=== PATIENT | female | born 1950 | race Two or more races ===

== ENCOUNTER 2018-04-14 10:24 | Outpatient (CLI) | payer MEDICARE, BC | END 2018-04-14 23:59 | disposition home or self-care (01) | LOC: WOU 10:24 | PROVIDERS: ATTEND Podiatrist Foot & Ankle Surgery | DX: S90.31XA Contusion of right foot, initial encounter (principal); S93.401A Sprain of unspecified ligament of right ankle, initial encounter; X50.1XXA Overexertion from prolonged static or awkward postures, initial encounter; Y93.01 Activity, walking, marching and hiking; Y92.219 Unspecified school as the place of occurrence of the external cause; Z87.891 Personal history of nicotine dependence; E07.9 Disorder of thyroid, unspecified; J45.909 Unspecified asthma, uncomplicated; C90.00 Multiple myeloma not having achieved remission; Z79.899 Other long term (current) drug therapy; M84.474K Pathological fracture, right foot, subsequent encounter for fracture with nonunion | CPT/HCPCS: 73630-TC; G0463; Z7610 ==

== ENCOUNTER 2018-05-09 11:25 | Outpatient (CLI) | payer MEDICARE, BC | END 2018-05-09 23:59 | disposition home or self-care (01) | LOC: WOU 11:25 | PROVIDERS: ATTEND Podiatrist Foot & Ankle Surgery | DX: M84.374D Stress fracture, right foot, subsequent encounter for fracture with routine healing (principal); S93.601D Unspecified sprain of right foot, subsequent encounter; S90.31XD Contusion of right foot, subsequent encounter; X58.XXXD Exposure to other specified factors, subsequent encounter; R60.0 Localized edema | CPT/HCPCS: G0463; Z7610 ==

== ENCOUNTER 2018-05-31 13:38 | Outpatient (CLI) | payer MEDICARE, BC | END 2018-05-31 23:59 | disposition home or self-care (01) | LOC: WOU 13:38 | PROVIDERS: ATTEND Podiatrist Foot & Ankle Surgery | DX: S92.351K Displaced fracture of fifth metatarsal bone, right foot, subsequent encounter for fracture with nonunion (principal); X58.XXXD Exposure to other specified factors, subsequent encounter; G57.81 Other specified mononeuropathies of right lower limb; M65.871 Other synovitis and tenosynovitis, right ankle and foot; M77.41 Metatarsalgia, right foot; Z88.2 Allergy status to sulfonamides | CPT/HCPCS: G0463; Z7610 ==

== ENCOUNTER 2018-06-01 11:37 | Outpatient (CLI) | payer MEDICARE, BC | END 2018-06-01 23:59 | disposition home or self-care (01) | LOC: MRI 11:37 | PROVIDERS: ATTEND Podiatrist Foot & Ankle Surgery | DX: S92.354A Nondisplaced fracture of fifth metatarsal bone, right foot, initial encounter for closed fracture (principal); G57.61 Lesion of plantar nerve, right lower limb; R60.0 Localized edema; X58.XXXA Exposure to other specified factors, initial encounter; Y93.89 Activity, other specified; Y92.89 Other specified places as the place of occurrence of the external cause; Y99.8 Other external cause status | CPT/HCPCS: 73718-TC ==

== ENCOUNTER 2018-07-26 13:45 | Outpatient (CLI) | payer MEDICARE, BC | END 2018-07-26 16:00 | disposition home or self-care (01) | LOC: WOU 13:45 | PROVIDERS: ATTEND Podiatrist Foot & Ankle Surgery | DX: L84 Corns and callosities (principal) | CPT/HCPCS: G0463; Z7610 ==